=== PATIENT | male | born 1935 | race Caucasian/White ===

== ENCOUNTER 2020-12-12 14:29 | Inpatient (IN) | payer MEDICARE, BC ==
[2020-12-12 15:45] LABS: #Eosinphils 0.3 10x3/uL (0.0-0.5); #Monocytes 0.8 10x3/uL (0.0-1.1); #Neutrophils 4.9 10x3/uL (1.5-8.4); %Basophils 0.5 % (0.0-2.0); %Lymphocytes 20.7 % (18.0-47.0); %Monocytes 10.7 % (0.0-10.0); %Neutrophils 63.7 % (40.0-75.0); Hemoglobin 13.9 g/dL (13.5-17.5); Mean Corpuscular HGB CONC 32.9 g/dL (32.0-36.0); Mean Corpuscular Hemoglobin 29.9 pg (27.0-33.0); Mean Platelet Volume 10.3 fl (7.4-10.4); Platelet Count 261 10x3/uL (150-450); RBC Distribution Width 13.5 % (11.5-14.5); Red Blood Cell (RBC) Count 4.65 10x6/uL (4.32-5.72); White Blood Cell (WBC) Count 7.7 10x3/uL (3.5-10.5)
[2020-12-12 15:52] LABS: ALT (SGPT) 22 U/L (8-55); AST (SGOT) 20 U/L (5-34); Albumin 4.1 g/dL (3.4-4.8); Alkaline Phosphatase 78 U/L (40-110); Anion Gap 15 mmol/L (10-20); BUN (Urea Nitrogen) 28 mg/dL (8.4-25.7); Bilirubin, Total 0.4 mg/dL (0.2-1.2); Calc. Creatinine Clearance 0 mL/min (70-130); Calcium 9.2 mg/dL (7.8-10.44); Carbon Dioxide 22 mmol/L (23-31); Chloride 105 mmol/L (98-107); Globulin 2.6 g/dL (2.4-3.5); Glucose 199 mg/dL (83-110); Potassium 4.5 mmol/L (3.5-5.1); Protein, Total 6.7 g/dL (5.8-8.1); Sodium 137 mmol/L (136-145)
[2020-12-12 16:02] LABS: Bilirubin Neg (Negative); Blood, Urine Negative (Negative); Clarity Clear (Clear); Glucose, Urine (Dipstick) 250 mg/dL (Negative); Ketone, Urine Negative (Negative); Leukocyte Negative (Negative); Nitrite Negative (Negative); Protein, Urine (Dipstick) 15 mg/dl (Neg-Trace); Urobilinogen Normal mg/dL (Less than 2)
[2020-12-12 16:04] LABS: INR-International Normal Ratio 0.9; PTT 25.7 sec (22.0-33.0); Prothrombin Time 10.2 sec (9.5-12.1)
[2020-12-12] MEDS ORDERED: Aspirin 325 MG TAB ONE (16:58)
[2020-12-12] MEDS ORDERED: hydrALAZINE 20 MG/ML VIAL SLOW IVP PRN (18:07)
[2020-12-12 19:04] VITALS: BMI 26.0
[2020-12-12] MEDS ORDERED: Guaifenesin DM 100-10/5 ML UDCUP PO PRN (19:18)
[2020-12-12] MEDS ORDERED: Acetaminophen 325 MG TAB PO PRN (19:18)
[2020-12-12] MEDS ORDERED: Ondansetron ODT 4 MG TAB PO PRN (19:18)
[2020-12-12] MEDS ORDERED: Senokot S 8.6-50 MG TAB PO PRN (19:18)
[2020-12-12] MEDS ORDERED: Ondansetron PF 4 MG/2 ML Vial IVP PRN (19:18)
[2020-12-12] MEDS ORDERED: Dextrose 5% in Water 1,000 ML IV PRN (19:32)
[2020-12-12] MEDS ORDERED: Dextrose 50% Abboject 50 ML SYRINGE SLOW IVP PRN (19:32)
[2020-12-12] MEDS ORDERED: Polyethylene Glycol 3350 17 GM Packet PO SCH (19:45)
[2020-12-12] MEDS: Atorvastatin Calcium 40 MG TAB PO SCH (21:52)
[2020-12-12] MEDS: Glimepiride 4 MG TAB PO SCH (21:53)
[2020-12-13] MEDS: HumaLOG 300 UNITS/3 ML VIAL SC PRN (05:58)
[2020-12-13 06:16] LABS: Anion Gap 13 mmol/L (10-20); BUN (Urea Nitrogen) 21 mg/dL (8.4-25.7); Calc. Creatinine Clearance 91 mL/min (70-130); Calcium 9.2 mg/dL (7.8-10.44); Carbon Dioxide 24 mmol/L (23-31); Cardiac Risk 3.2 (Less than 4.5); Chloride 108 mmol/L (98-107); Cholesterol 104 mg/dl (< 200 Desired); Glucose 164 mg/dL (83-110); HDL Cholesterol 33 mg/dL (>60 Neg Risk); LDL Cholesterol, Calculated 44 mg/dL; Potassium 4.5 mmol/L (3.5-5.1); Sodium 140 mmol/L (136-145); Triglycerides 134 mg/dL (Less than 150)
[2020-12-13 07:30] LABS: #Eosinphils 0.3 10x3/uL (0.0-0.5); #Neutrophils 4.3 10x3/uL (1.5-8.4); %Basophils 0.6 % (0.0-2.0); %Eosinophils 4.5 % (0.0-6.0); %Lymphocytes 21.5 % (18.0-47.0); %Monocytes 13.3 % (0.0-10.0); %Neutrophils 59.8 % (40.0-75.0); Hemoglobin 13.5 g/dL (13.5-17.5); Mean Corpuscular Hemoglobin 29.9 pg (27.0-33.0); Mean Corpuscular Volume 90.5 fl (81.2-95.1); Mean Platelet Volume 9.9 fl (7.4-10.4); Platelet Count 242 10x3/uL (150-450); RBC Distribution Width 13.3 % (11.5-14.5); Red Blood Cell (RBC) Count 4.52 10x6/uL (4.32-5.72); White Blood Cell (WBC) Count 7.1 10x3/uL (3.5-10.5)
[2020-12-13] MEDS: Aspirin 81 mg Enteric Coated Tablet PO SCH (11:00)
[2020-12-13] MEDS: metFORMIN 500 MG TAB PO SCH ×2 (11:00→16:47)
[2020-12-13] MEDS: Allopurinol 300 MG TAB PO SCH (11:00)
[2020-12-13] MEDS: Enoxaparin Sodium 30 MG/0.3 ML SYRINGE SC SCH (11:00)
[2020-12-13] MEDS: Polyethylene Glycol 3350 17 GM Packet PO SCH (11:00)
[2020-12-13] MEDS: Glimepiride 4 MG TAB PO SCH ×2 (11:00→21:46)
[2020-12-13] MEDS: Meloxicam 7.5 MG TAB PO SCH (11:22)
[2020-12-13] MEDS: Dutasteride 0.5 MG CAP PO SCH (11:22)
[2020-12-13] MEDS ORDERED: Clopidogrel Bisulfate 300 MG TAB PO SCH ×2 (14:00→16:45)
[2020-12-13 15:55] LABS: SARS-CoV-2 PCR by NAA Not Detected (NotDetected)
[2020-12-13] MEDS: Atorvastatin Calcium 40 MG TAB PO SCH (21:46)
[2020-12-14] MEDS: HumaLOG 300 UNITS/3 ML VIAL SC PRN (07:49)
[2020-12-14] MEDS: Allopurinol 300 MG TAB PO SCH (08:13)
[2020-12-14] MEDS: Glimepiride 4 MG TAB PO SCH (08:14)
[2020-12-14] MEDS: Aspirin 81 mg Enteric Coated Tablet PO SCH (08:14)
[2020-12-14] MEDS: metFORMIN 500 MG TAB PO SCH (08:14)
[2020-12-14] MEDS: Polyethylene Glycol 3350 17 GM Packet PO SCH (08:15)
[2020-12-14] MEDS: Dutasteride 0.5 MG CAP PO SCH (08:15)
[2020-12-14] MEDS: Meloxicam 7.5 MG TAB PO SCH (08:15)
[2020-12-14] MEDS: Enoxaparin Sodium 30 MG/0.3 ML SYRINGE SC SCH (08:16)
[2020-12-14 19:42] VITALS: BP 128/73; TEMP 97.3
[2020-12-15] MEDS ORDERED: Clopidogrel Bisulfate 75 MG TAB PO SCH (09:00)
== END 2020-12-14 14:20 | disposition home or self-care (01) | DRG 69 ==
LOC: CSHERS 14:29 → SUATTDRO 14:29 → OBSVTOIN 18:58 → INTOOBSV 18:58 → CSHTELE 18:58
PROVIDERS: ADMIT Internal Medicine; ATTEND Internal Medicine
DX: G45.9 Transient cerebral ischemic attack, unspecified (principal); Z20.822 Contact with and (suspected) exposure to COVID-19; I10 Essential (primary) hypertension; N40.0 Benign prostatic hyperplasia without lower urinary tract symptoms; K59.00 Constipation, unspecified; E11.42 Type 2 diabetes mellitus with diabetic polyneuropathy; M10.9 Gout, unspecified; R26.9 Unspecified abnormalities of gait and mobility; W19.XXXA Unspecified fall, initial encounter; R47.1 Dysarthria and anarthria; I65.23 Occlusion and stenosis of bilateral carotid arteries; Z79.82 Long term (current) use of aspirin; Z85.038 Personal history of other malignant neoplasm of large intestine; Z87.891 Personal history of nicotine dependence; Z79.84 Long term (current) use of oral hypoglycemic drugs; Z79.899 Other long term (current) drug therapy; Z91.81 History of falling
CPT/HCPCS: 36415; 36416; 70450; 70551; 71045; 80048; 80053; 80061; 81003; 84484; 85025; 85610; 85730; 87635; 93005; 93306; 93880; 96372; 96374; G0378; J0360; J1650; J1815; U0003; U0005

== ENCOUNTER 2022-04-21 18:33 | Emergency (ER) | payer MEDICARE, BC ==
[2022-04-21] MEDS ORDERED: Boostrix 0.5 ML (Tdap) VIAL ONE (19:42)
[2022-04-21] MEDS ORDERED: Lidocaine 1% (PF) 30 ML VIAL ONE (19:42)
[2022-04-21] MEDS ORDERED: Bacitracin 1 PK ONE (20:15)
== END 2022-04-21 20:31 | disposition home or self-care (01) ==
LOC: CSHERS 18:33
DX: S81.811A Laceration without foreign body, right lower leg, initial encounter (principal); E78.00 Pure hypercholesterolemia, unspecified; I10 Essential (primary) hypertension; Z87.891 Personal history of nicotine dependence; W26.8XXA Contact with other sharp object(s), not elsewhere classified, initial encounter; Z23 Encounter for immunization
CPT/HCPCS: 12002; 90471; 90715; J2001

== ENCOUNTER 2023-02-28 16:13 | Emergency (ER) | payer MEDICARE, BC ==
[2023-02-28 17:08] LABS: #Monocytes 0.3 10x3/uL (0.0-1.1); #Neutrophils 10.4 10x3/uL (1.5-8.4); %Basophils 0.2 % (0.0-2.0); %Eosinophils 0.3 % (0.0-6.0); %Lymphocytes 6.6 % (18.0-47.0); %Monocytes 2.8 % (0.0-10.0); %Neutrophils 89.7 % (40.0-75.0); Hemoglobin 13.7 g/dL (13.5-17.5); Mean Corpuscular HGB CONC 32.7 g/dL (32.0-36.0); Mean Corpuscular Hemoglobin 28.8 pg (27.0-33.0); Mean Corpuscular Volume 88.2 fl (81.2-95.1); Mean Platelet Volume 9.4 fl (7.4-10.4); Platelet Count 435 10x3/uL (150-450); RBC Distribution Width 13.7 % (11.5-14.5); Red Blood Cell (RBC) Count 4.75 10x6/uL (4.32-5.72); White Blood Cell (WBC) Count 11.5 10x3/uL (3.5-10.5)
[2023-02-28] MEDS ORDERED: Cefepime 2 GM VIAL ONE (17:12)
[2023-02-28 17:13] LABS: ALT (SGPT) 46 U/L (8-55); AST (SGOT) 34 U/L (5-34); Albumin 3.8 g/dL (3.4-4.8); Alkaline Phosphatase 90 U/L (40-110); Anion Gap 21 mmol/L (10-20); BUN (Urea Nitrogen) 20 mg/dL (8.4-25.7); Bilirubin, Total 0.4 mg/dL (0.2-1.2); Calc. Creatinine Clearance 0 mL/min (70-130); Calcium 9.3 mg/dL (7.8-10.44); Carbon Dioxide 17 mmol/L (23-31); Chloride 103 mmol/L (98-107); Estimated GFR 84; Globulin 3.3 g/dL (2.4-3.5); Glucose 243 mg/dL (83-110); Potassium 4.9 mmol/L (3.5-5.1); Protein, Total 7.1 g/dL (5.8-8.1); Sodium 136 mmol/L (136-145)
[2023-02-28] MEDS ORDERED: VANCOMYCIN 2 GRAM/400 ML BAG 2 GM in Premix Bag 1 BAG IVPB SCH (17:30)
[2023-02-28 20:23] LABS: Lactic Acid 4.1 mmol/L (0.5-2.2)
[2023-02-28 20:58] LABS: ALT (SGPT) 40 U/L (8-55); AST (SGOT) 28 U/L (5-34); Albumin 3.3 g/dL (3.4-4.8); Alkaline Phosphatase 77 U/L (40-110); Anion Gap 17 mmol/L (10-20); BUN (Urea Nitrogen) 18 mg/dL (8.4-25.7); Bilirubin, Total 0.3 mg/dL (0.2-1.2); Calc. Creatinine Clearance 0 mL/min (70-130); Calcium 8.9 mg/dL (7.8-10.44); Carbon Dioxide 17 mmol/L (23-31); Chloride 108 mmol/L (98-107); Estimated GFR 86; Globulin 3.5 g/dL (2.4-3.5); Glucose 228 mg/dL (83-110); Potassium 4.8 mmol/L (3.5-5.1); Protein, Total 6.8 g/dL (5.8-8.1); Sodium 137 mmol/L (136-145)
== END 2023-02-28 22:43 | disposition short-term general hospital (02) ==
LOC: CSHERS 16:13
DX: A41.9 Sepsis, unspecified organism (principal); L03.031 Cellulitis of right toe; I10 Essential (primary) hypertension; Z87.891 Personal history of nicotine dependence
CPT/HCPCS: 36415; 80053; 83605; 85025; 85652; 86140; 87040; 93005; 94760; 96365; 96366; 96367; J0692; J3370